=== PATIENT | female | born 1990 | race Caucasian/White ===

== ENCOUNTER 2019-09-03 21:38 | Emergency (ER) | payer MEDICAID ==
[~2019-09-03] VITALS: Ht 167.6 cm; Wt 86.2 kg
[2019-09-03 21:46] VITALS: Ht 167.6 cm; Wt 86.2 kg
[2019-09-03 22:34] LABS: microscopic required? NO
[2019-09-03 22:45] LABS: BASOPHIL % 0.3 % (0-2); PLATELET COUNT 188 x10^3mcL (130-400)
[2019-09-03 22:53] LABS: CALCIUM 8.7 mg/dL (8.5-10.1); CARBON DIOXIDE 27.7 mmol/L (21-32); CHLORIDE SERUM 105 mmol/L (98-107); CREATININE SERUM 0.6 mg/dL (0.6-1.0); GFR1 > 60 mL/min; GLUCOSE SERUM 93 mg/dL (74-106); POTASSIUM SERUM 3.9 mmol/L (3.5-5.1); SODIUM SERUM 141 mmol/L (136-145)
[2019-09-03 22:56] LABS: urine erythrocyte NEGATIVE (NEGATIVE)
[2019-09-03 22:57] LABS: ALBUMIN 3.7 g/dL (3.4-5.0); ALKALINE PHOSPHATASE 84 U/L (46-116); ALT/SGPT 35 U/L (14-59); AST/SGOT 12 U/L (15-37); BILIRUBIN TOTAL 0.19 mg/dL (0.20-1.00); CHOLESTEROL 150 mg/dL (<200); CHOLESTEROL/HDL RATIO 2.8; HDL CHOLESTEROL 54 mg/dL (40-60); TOTAL PROTEIN, SERUM 7.5 g/dL (6.4-8.2); TRIGLYCERIDES 88 mg/dL (<150)
[2019-09-04 01:46] VITALS: BP 112/66
== END 2019-09-04 01:46 | disposition home or self-care (01) ==
LOC: ED 21:38
PROVIDERS: Specialist
DX: R10.13 Epigastric pain (principal); R11.10 Vomiting, unspecified; Z90.49 Acquired absence of other specified parts of digestive tract
CPT/HCPCS: 36415; J1885; J3010; Q0162

== ENCOUNTER 2020-12-20 19:02 | Emergency (ER) | payer MEDICAID ==
[~2020-12-20] VITALS: Ht 167.6 cm; Wt 93.9 kg
[2020-12-20 19:06] VITALS: Ht 167.6 cm; Wt 93.9 kg
[2020-12-20 19:49] LABS: CALCIUM 9.5 mg/dL (8.5-10.1); CARBON DIOXIDE 26.6 mmol/L (21-32); CHLORIDE SERUM 101 mmol/L (98-107); CREATININE SERUM 0.8 mg/dL (0.6-1.0); GFR1 > 60 mL/min; GLUCOSE SERUM 101 mg/dL (74-106); POTASSIUM SERUM 3.8 mmol/L (3.5-5.1); SODIUM SERUM 139 mmol/L (136-145)
[2020-12-20 19:56] LABS: ALBUMIN 4.1 g/dL (3.4-5.0); ALKALINE PHOSPHATASE 103 U/L (46-116); ALT/SGPT 116 U/L (14-59); AST/SGOT 77 U/L (15-37); TOTAL PROTEIN, SERUM 8.3 g/dL (6.4-8.2)
[2020-12-20 20:12] LABS: BASOPHIL % 0.4 % (0.2-1.3); PLATELET COUNT 232 x10^3mcL (179-408); RED CELL DISTRIBUTION WIDTH 13.8 % (12.3-17.7)
[2020-12-20] MEDS ORDERED: ONDANSETRON4 M3 PO (20:45)
[2020-12-20 21:11] VITALS: BP 116/64
== END 2020-12-20 21:11 | disposition home or self-care (01) ==
LOC: ED 19:02
PROVIDERS: Emergency Medicine
DX: K52.9 Noninfective gastroenteritis and colitis, unspecified (principal); Z98.890 Other specified postprocedural states; Z90.49 Acquired absence of other specified parts of digestive tract; Z20.828 Contact with and (suspected) exposure to other viral communicable diseases
CPT/HCPCS: J2405; J7030